=== PATIENT | female | born 1995 | race Caucasian/White ===

== ENCOUNTER 2016-08-07 19:06 | Inpatient (IN) | payer OTHER ==
[~2016-08-07] VITALS: Ht 165.1 cm; Wt 64.0 kg
[~2016-08-07 19:06] MED LIST: B-1100 MG PO; LIBRIUM25 MG PO; NOHOMEMEDS; TYLENOL EXTRA500 MG; ULTRAM50 MG PO
[2016-08-07 20:26] LABS: AMPHETAMINE NEGATIVE (500 ng/mL); BARBITURATES NEGATIVE (200 ng/mL); BENZODIAZEPINES PRESUMPTIVE POSITIVE (150 ng/mL); COCAINE PRESUMPTIVE POSITIVE (150 ng/mL); INTERNAL CONTROLS VALID? YES; METHADONE PRESUMPTIVE POSITIVE (200 ng/mL); METHAMPHETAMINE NEGATIVE (500 ng/mL); OPIATES (MORPHINE) NEGATIVE (100 ng/mL); OXYCODONE NEGATIVE (100 ng/mL); PHENCYCLIDINE NEGATIVE (25 ng/mL); PROPOXYPHENE NEGATIVE (300 ng/mL); THC CANNABINOIDS NEGATIVE (50 ng/mL); TRICYCLIC ANTIDEPRESSANTS NEGATIVE (300 ng/mL)
[2016-08-07 20:27] LABS: ADD MEDTOX COMMENT Y
[2016-08-07 20:57] LABS: BENZODIAZEPINES, URINE SCREEN POSITIVE (200 ng/mL)
[2016-08-07 21:01] LABS: HEMATOCRIT 45.4 % (36.0-46.0); MCH 28.3 PG (29.0-34.0); MCHC 32.4 G/DL (30.0-36.0); MCV 87.5 FL (83-99); MEAN PLAT.VOLUME 9.2 uM^3 (9.5-12.4); PLATELET COUNT 386 K/uL (156-360); RBC DIS.WIDTH-CV 11.9 % (11.8-14.6); RBC DIS.WIDTH-SD 38.5 % (39-53); RED BLOOD COUNT 5.19 M/uL (3.80-5.20); WHITE BLOOD COUNT 8.4 K/uL (4.1-10.2)
[2016-08-07 21:11] LABS: CHLORIDE 105 mEq/L (99-109); SODIUM 141 mEq/L (136-147)
[2016-08-07 21:12] LABS: GLUCOSE 85 mg/dL (70-99)
[2016-08-07 21:14] LABS: ANION GAP 11 MEQ/L (2-14)
[2016-08-07 21:15] LABS: SERUM ETHYL ALCOHOL < 10 mg/dL
[2016-08-07 21:16] LABS: GFR ESTIMATE (CALCULATED) > 59 mL/min/
[2016-08-07 21:17] LABS: UREA NITROGEN (BUN) 8 mg/dL (9-23)
[2016-08-07 21:26] LABS: QUANTITATIVE HCG < 4.0 MIU/ML
[2016-08-08 05:51] VITALS: BP 108/57
[2016-08-08 05:55] VITALS: BP 108/57
[2016-08-08 07:41] VITALS: BP 106/55
[2016-08-08 16:14] VITALS: BP 123/72
[2016-08-09 08:17] VITALS: BP 86/48
[2016-08-09 11:51] VITALS: BP 91/50
[2016-08-09 16:25] VITALS: BP 101/57
[2016-08-10 08:04] VITALS: BP 111/56
[2016-08-10 15:51] VITALS: BP 102/55
[2016-08-11 07:49] VITALS: BP 103/56
[2016-08-11 15:32] VITALS: BP 108/71
[2016-08-12 07:52] VITALS: BP 107/64
[2016-08-12 15:35] VITALS: BP 122/63
[2016-08-13 07:52] VITALS: BP 114/66
[2016-08-13] MEDS ORDERED: QUETIAPINE FUM100 MG PO (10:11)
== END 2016-08-13 13:35 | disposition home or self-care (01) | DRG 882 ==
LOC: EME 19:06 → EDOF 08-08 01:41 → 1WEST 08-08 01:41
DX: F43.20 Adjustment disorder, unspecified (principal); F11.20 Opioid dependence, uncomplicated; F14.20 Cocaine dependence, uncomplicated; F13.20 Sedative, hypnotic or anxiolytic dependence, uncomplicated; R45.851 Suicidal ideations
CPT/HCPCS: 71020; 80048; 84702; 84999; 85027; 90839; 97150 GO; 97165 GO; 99281; 99285; G0480; J0572; J0574; Q0177